=== PATIENT | male | born 1980 | race Caucasian/White ===

== ENCOUNTER 2018-09-17 20:45 | Emergency (ER) | payer OTHER | END 2018-09-17 23:39 | disposition home or self-care (01) | LOC: FTE 20:45 | DX: L03.115 Cellulitis of right lower limb (principal); F17.210 Nicotine dependence, cigarettes, uncomplicated | CPT/HCPCS: 99283; Z7502 ==

== ENCOUNTER 2019-01-25 14:42 | Emergency (ER) | payer OTHER ==
[2019-01-25] MEDS: IBUPROFEN 600 MG TAB PO (16:43)
== END 2019-01-25 19:24 | disposition home or self-care (01) ==
LOC: FTE 19:24
DX: M54.5 Low back pain (principal); F17.210 Nicotine dependence, cigarettes, uncomplicated
CPT/HCPCS: 72100; 73030-RT; 99284-25